=== PATIENT | female | born 1960 | race Two or more races ===

== ENCOUNTER 2019-03-09 11:15 | Outpatient (CLI) | payer OTHER | END 2019-03-09 11:26 | disposition home or self-care (01) | LOC: RAD 501 11:15 | DX: Z01.89 Encounter for other specified special examinations (principal) ==

== ENCOUNTER 2019-09-16 08:01 | Outpatient (CLI) | payer OTHER | END 2019-09-16 08:20 | disposition home or self-care (01) | LOC: MRI 08:01 | DX: M84.375A Stress fracture, left foot, initial encounter for fracture (principal) | CPT/HCPCS: 73718 ==

== ENCOUNTER 2019-09-22 11:05 | Outpatient (CLI) | payer OTHER | END 2019-09-22 12:00 | disposition home or self-care (01) | LOC: NUCLEAR 11:05 | DX: M81.0 Age-related osteoporosis without current pathological fracture (principal) ==

== ENCOUNTER 2020-05-03 11:15 | Outpatient (CLI) | payer OTHER | END 2020-05-03 11:27 | disposition home or self-care (01) | LOC: RAD 11:15 | PROVIDERS: ATTEND Internal Medicine Pulmonary Disease | DX: J45.41 Moderate persistent asthma with (acute) exacerbation (principal); J30.1 Allergic rhinitis due to pollen ==

== ENCOUNTER 2020-05-17 09:19 | Outpatient (CLI) | payer OTHER | END 2020-05-17 09:28 | disposition home or self-care (01) | LOC: SONOGRAMA 09:19 | PROVIDERS: ATTEND Internal Medicine Gastroenterology | DX: E04.8 Other specified nontoxic goiter (principal); R16.0 Hepatomegaly, not elsewhere classified ==

== ENCOUNTER 2020-07-27 11:50 | Outpatient (CLI) | payer OTHER | END 2020-07-27 11:57 | disposition home or self-care (01) | LOC: RAD 11:50 | PROVIDERS: ATTEND Physical Medicine & Rehabilitation | DX: M19.041 Primary osteoarthritis, right hand (principal); M19.042 Primary osteoarthritis, left hand; S90.31XA Contusion of right foot, initial encounter ==

== ENCOUNTER 2020-07-28 13:33 | Outpatient (CLI) | payer OTHER | END 2020-07-28 13:36 | disposition home or self-care (01) | LOC: TOM 13:33 | PROVIDERS: ATTEND Internal Medicine Pulmonary Disease | DX: R91.1 Solitary pulmonary nodule (principal) ==

== ENCOUNTER 2021-01-30 10:11 | Outpatient (CLI) | payer OTHER | END 2021-01-30 10:24 | disposition home or self-care (01) | LOC: TOM 10:11 | PROVIDERS: ATTEND Internal Medicine Gastroenterology | DX: K57.90 Diverticulosis of intestine, part unspecified, without perforation or abscess without bleeding (principal); R10.33 Periumbilical pain; R63.4 Abnormal weight loss ==

== ENCOUNTER 2021-09-19 11:39 | Outpatient (CLI) | payer OTHER | END 2021-09-19 11:52 | disposition home or self-care (01) | LOC: RAD 11:39 | PROVIDERS: ATTEND Physical Medicine & Rehabilitation | DX: M54.2 Cervicalgia (principal); M25.511 Pain in right shoulder ==

== ENCOUNTER 2021-10-26 08:45 | Outpatient (CLI) | payer OTHER | END 2021-10-26 09:07 | disposition home or self-care (01) | LOC: TOM 08:45 | PROVIDERS: ATTEND Internal Medicine Pulmonary Disease | DX: J30.1 Allergic rhinitis due to pollen (principal); J45.40 Moderate persistent asthma, uncomplicated; R91.1 Solitary pulmonary nodule; R06.02 Shortness of breath; J45.998 Other asthma ==